=== PATIENT | female | born 1970 | race Caucasian/White ===

== ENCOUNTER 2016-09-26 07:15 | Day surgery (SDC) | payer OTHER ==
[2016-09-26] VITALS (25 sets, daily range): BP systolic 81–119; BP diastolic 46–70; PULSE 72–98; RESP 11–23; Ht 162.6 cm; Wt 47.0 kg
[~2016-09-26] VITALS: Ht 162.6 cm; Wt 47.0 kg
[2016-09-26] MEDS ORDERED: CEFAZOLIN 2 GM/50 ML (PMX) 50 ML IVPB ONE (11:00)
[2016-09-26] MEDS ORDERED: SOD CHLORIDE 0.9% 1,000 ML IV SCH (11:00)
[2016-09-26] MEDS ORDERED: PROPOFOL 20 ML ONE (11:59)
[2016-09-26] MEDS ORDERED: CEFAZOLIN 1 GM INJ ONE (11:59)
[2016-09-26] MEDS ORDERED: FENTAnyl 50 MCG/ML VIAL ONE (11:59)
[2016-09-26] MEDS ORDERED: MIDAZOLAM 1 MG/ML 2 ML INJ ONE (11:59)
[2016-09-26] MEDS ORDERED: ONDANSETRON 4 MG INJ IV PRN (12:00)
[2016-09-26] MEDS ORDERED: DIPHENHYDRAMINE 50 MG INJ IV PRN (12:00)
[2016-09-26] MEDS ORDERED: HYDROmorphONE (0.2 MG/ML) 10ML SYG IV PRN ×3 (12:00)
[2016-09-26] MEDS ORDERED: LABETALOL HCL 20MG INJ IV PRN (12:00)
[2016-09-26] MEDS ORDERED: morphine (1 MG/ML) 10ML SYRINGE IV PRN ×3 (12:00)
[2016-09-26] MEDS ORDERED: OXYCODONE/ACETAMINOPHEN (5/325) TAB PO PRN ×2 (12:00)
[2016-09-26] MEDS ORDERED: MEPERIDINE 25 MG INJ IV PRN (12:00)
[2016-09-26] MEDS ORDERED: METOCLOPRAMIDE 10 MG INJ IV PRN (12:00)
[2016-09-26] MEDS ORDERED: EPHEDrine SULFATE 50 MG/5 ML SYG IV PRN (12:00)
[2016-09-26] MEDS ORDERED: PHENYLephrine (100 MCG/ML) 5ML SYG ONE (12:45)
[2016-09-26] MEDS ORDERED: BUPIVACAINE 0.25% (MPF) 30 ML INJ INJ ONE (12:59)
[2016-09-26] MEDS ORDERED: DEXAMETHASONE 4 MG/ML 1 ML INJ ONE (13:10)
[2016-09-26] MEDS ORDERED: METOCLOPRAMIDE 10 MG INJ ONE (13:10)
[2016-09-26] MEDS ORDERED: KETOROLAC 30 MG INJ ONE (13:10)
[2016-09-26] MEDS ORDERED: ONDANSETRON 4 MG INJ ONE (13:10)
--- NOTE | 2016-09-26 13:20 | OPR ---
Date/Time of Note Date/Time of Note DATE: 09/26/16 TIME: 13:19 Operative Report Preoperative Diagnosis left breast tumor Postoperative Diagnosis left breast tumor Operation/Procedure Performed left needle loc breast biopsy 4 cm incision and 3 cm mass localized adjacent tissue transfer with the use of skin flaps 8 sq com defect therapeutic injection of localized anesthesia Surgeon: Carolyne BARAJAS Specimens left breast tumor Carolyne BARAJAS Sep 26, 2016 13:20
[2016-09-26] MEDS ORDERED: HYDROCODONE/APAP (5/325) TAB PO ONE (13:30)
--- NOTE | 2016-09-26 13:41 | OPR ---
DATE OF OPERATION: 09/26/2016 INDICATION: This is a 46-year-old female with a left breast tumor. She requests surgical excision. Risks, alternatives, benefits, and personnel were discussed with the patient. Patient expressed u nderstanding and consents to the operation. PREOPERATIVE DIAGNOSIS: Left breast tumor. POSTOPERATIVE DIAGNOSIS: Left breast tumor. OPERATIONS PERFORMED: 1. Left needle localization, radical root resection of breast tumor with 4 cm size incision and 3 c m size tumor. 2. Localized adjacent tissue transfer with the use of skin flaps of 8 cm2. 3. Therapeutic injection of localized anesthesia, CPT code 93954. SURGEON: Job Li MD SPECIMEN: Left breast tumor. COMPLICATIONS: None. ANESTHESIA: General. PROCEDURE: The patient was taken to the OR and prepped and draped in the usual sterile fashion. Garner rgical timeout was performed. IV antibiotics were given. Radiographic imaging is reviewed. A curv ilinear incision was made in the left upper quadrant of the left breast with a 15 blade. Dissection cautery was carried down to the mass along with the wire and circumferentially the mass was excised . There was good hemostasis. Due to tissue defect, localized adjacent tissue transfer with the use of skin flaps was performed. Multi-layer closure of interrupted 3-0 Vicryl and running 4-0 Monocry l. Local anesthesia was injected and dressings were applied. Dictated By: JOB COLEMAN/JAIDEN Conf#: [id number] DID#: [id number]
== END 2016-09-26 17:00 | disposition home or self-care (01) ==
LOC: SDS 07:15
PROVIDERS: ATTEND Surgery
DX: N60.22 Fibroadenosis of left breast (principal)
CPT/HCPCS: 14000; 19120; 88307; J0690; J1100; J1170; J1885; J2250; J2370; J2405; J2765; J3010; Z7512; Z7610; J2175